=== PATIENT | male | born 1955 | race Caucasian/White ===

== ENCOUNTER 2021-08-20 13:00 | Outpatient (RCR) | payer OTHER, SELFPAY | END 2021-10-10 15:01 | disposition home or self-care (01) | LOC: HO.PT 13:00 | PROVIDERS: PCP Internal Medicine; Visit Provider Urology | DX: R32 Unspecified urinary incontinence (principal); Z98.890 Other specified postprocedural states | CPT/HCPCS: 97112; 97161; 97530 ==